=== PATIENT | male | born 1965 | race Caucasian/White ===

== ENCOUNTER 2018-09-24 16:11 | Outpatient (CLI) | payer OTHER ==
[2018-09-24 17:49] LABS: eGFR (Non-African) > 60
== END 2018-09-24 16:13 ==
LOC: LAB 16:11
PROVIDERS: ATTEND Family Medicine
DX: Z00.00 Encounter for general adult medical examination without abnormal findings (principal); R53.83 Other fatigue; Z12.5 Encounter for screening for malignant neoplasm of prostate
CPT/HCPCS: 36415; 80053; 80061; 84403; G0103

== ENCOUNTER 2018-10-02 15:48 | Outpatient (CLI) | payer OTHER | END 2018-10-02 15:50 | LOC: LAB 15:48 | PROVIDERS: ATTEND Family Medicine | DX: R73.9 Hyperglycemia, unspecified (principal) | CPT/HCPCS: 36415; 83036 ==